=== PATIENT | female | born 1990 | race African-American/Black ===

== ENCOUNTER 2016-10-03 23:01 | Emergency (ER) | payer OTHER ==
[2014-09-13 23:01] VITALS: BP 117/56
[2016-10-04] MEDS ORDERED: CLIN-44 PO (10:34)
[2016-10-04] MEDS ORDERED: HYDR-971 PO (10:34)
== END 2016-10-04 00:40 | disposition left against medical advice (07) ==
LOC: ER 23:01
DX: K08.89 Other specified disorders of teeth and supporting structures (principal)

== ENCOUNTER 2016-10-04 09:16 | Emergency (ER) | payer OTHER ==
[~2016-10-04] VITALS: Ht 162.6 cm; Wt 72.6 kg
[2016-10-04 10:10] VITALS: BP 129/57
[2016-10-04] MEDS ORDERED: CLIN-44 PO (10:34)
[2016-10-04] MEDS ORDERED: HYDR-971 PO (10:34)
--- NOTE | 2016-10-04 10:34 | PHYS DOC ---
Past Medical History Past Medical History: No Pertinent History, Asthma, Hypertension Past Surgical History: Appendectomy, Tonsillectomy Alcohol Use: Occasionally Drug Use: None Adult General Chief Complaint Chief Complaint: DENTAL PROBLEM HPI HPI Patient is a 25 year old female who presents the emergency room today complaining of right lower dental pain secondary to her molar raking off approximately 3 days ago while she was eating. Patient denies any chronic or recurring dental problems. She denies any antibiotic use or recent dental work. Patient states that she will follow up with [facility] this next week for definitive dental care. Review of Systems Review of Systems Constitutional: Denies fever or chills [] Eyes: Denies change in visual acuity, redness, or eye pain [] HENT: Denies nasal congestion or sore throat [] Respiratory: Denies cough or shortness of breath [] Cardiovascular: No additional information not addressed in HPI [] GI: Denies abdominal pain, nausea, vomiting, bloody stools or diarrhea [] : Denies dysuria or hematuria [] Musculoskeletal: Denies back pain or joint pain [] Integument: Denies rash or skin lesions [] Neurologic: Denies headache, focal weakness or sensory changes [] Endocrine: Denies polyuria or polydipsia [] Allergies Allergies Allergies Coded Allergies Type Severity Reaction Last Updated Verified Penicillins Allergy Unknown 09/13/14 No chocolate flavor Allergy Unknown 09/13/14 No Physical Exam Physical Exam Constitutional: Well developed, well nourished, no acute distress, non-toxic appearance. [] HENT: Normocephalic, atraumatic, bilateral external ears normal, oropharynx moist, no oral exudates, nose normal. There is no trismus. Right second mandibular molar with dental defect into the pulp. There is approximately two third of the surface that is missing. The margins of the dental injury are smooth that appear more chronic in nature suspicious for underlying dental decay prior to the actual fracture of the tooth. There is no purulent drainage or adjacent gingival abscess/swelling. Eyes: PERRLA, EOMI, conjunctiva normal, no discharge. [] Neck: Normal range of motion, no tenderness, supple, no stridor. [] Cardiovascular:Heart rate regular rhythm, no murmur [] Lungs & Thorax: Bilateral breath sounds clear to auscultation [] Abdomen: Bowel sounds normal, soft, no tenderness, no masses, no pulsatile masses. [] Skin: Warm, dry, no erythema, no rash. [] Back: No tenderness, no CVA tenderness. [] Extremities: No tenderness, no cyanosis, no clubbing, ROM intact, no edema. [] Neurologic: Alert and oriented X 3, normal motor function, normal sensory function, no focal deficits noted. [] Psychologic: Affect normal, judgement normal, mood normal. [] Current Patient Data Vital Signs Vital Signs Date Time Temp Pulse Resp B/P Pulse Ox O2 Delivery O2 Flow Rate FiO2 10/04/16 10:10 98.4 73 16 98 Room Air 98.4 EKG EKG [] Radiology/Procedures Radiology/Procedures [] Course & Med Decision Making Course & Med Decision Making Pertinent Labs and Imaging studies reviewed. (See chart for details) [] Dragon Disclaimer Dragon Disclaimer This electronic medical record was generated, in whole or in part, using a voice recognition dictation system. Departure Departure Impression: Primary Impression: Dental caries Additional Impression: Pain Disposition: 01 HOME, SELF-CARE Condition: GOOD Referrals: NO PCP (PCP) Patient Instructions: Dental Caries-Brief, Dental Pain, [id number] Additional Instructions: 1. Take the medication as prescribed. 2. You can use dental wax to place into the defect of your tooth to help minimize the irritation to the nerve root from temperature changes. 3. Please review your discharge instructions; specifically reasons to return to the emergency room. 4. Be sure to call [facility] and follow-up to be seen within the next 7-10 days. 5. A pamphlet is provided for U for assistance in finding a primary care doctor to address your medical concerns and provide medication refills if you need them. Scripts Clindamycin Hcl 150 Mg Capsule2 Cap PO QID #56 CAP Prov:PARTHA SAMUEL 10/04/16 Hydrocodone/Apap 5-325 (Sidon 5-325 Tablet)1 Each Tablet1 Tab PO PRN Q6HRS PRN PAIN #15 TAB Prov:PARTHA SAMUEL 10/04/16 Problem Qualifiers PARTHA SAMUEL Oct 04, 2016 10:34
== END 2016-10-04 10:55 | disposition home or self-care (01) ==
LOC: ER 09:16
DX: K02.9 Dental caries, unspecified (principal); J45.909 Unspecified asthma, uncomplicated; I10 Essential (primary) hypertension; Z90.49 Acquired absence of other specified parts of digestive tract; Z88.0 Allergy status to penicillin; Z91.018 Allergy to other foods
CPT/HCPCS: 99283

== ENCOUNTER 2017-02-26 17:23 | Emergency (ER) | payer OTHER ==
[~2017-02-26] VITALS: Ht 160 cm; Wt 72.6 kg
[~2017-02-26 17:23] MED LIST: CLIN-44 PO; HYDR-971 PO
[2017-02-26 17:35] VITALS: BP 116/79
[2017-02-26] MEDS ORDERED: PROM25TA10 PO (17:43)
[2017-02-26] MEDS ORDERED: SUMA50TA3 PO (17:43)
--- NOTE | 2017-02-26 17:44 | PHYS DOC ---
Past Medical History Past Medical History: No Pertinent History, Asthma, Hypertension, Migraines Past Surgical History: Appendectomy, Tonsillectomy Alcohol Use: Occasionally Drug Use: None Adult General Chief Complaint Chief Complaint: HEADACHE HPI HPI Patient is a 26 year old female with history of hypertension and asthma who presents today with at 32/10 bilateral temporal migraine headache that began yesterday. Patient denies being the worst headache in her life despite rating it at 32/10. Patient denies any nausea or vomiting though she is complaining of photophobia. She states she has tried Tylenol 3 as well as BC powder with no relief. She states this pain was of gradual onset. She states she's had similar headaches before. Review of Systems Review of Systems Constitutional: Denies fever or chills [] Eyes: Denies change in visual acuity, redness, or eye pain [] HENT: Denies nasal congestion or sore throat [] Respiratory: Denies cough or shortness of breath [] Cardiovascular: No additional information not addressed in HPI [] GI: Denies abdominal pain, nausea, vomiting, bloody stools or diarrhea [] : Denies dysuria or hematuria [] Musculoskeletal: Denies back pain or joint pain [] Integument: Denies rash or skin lesions [] Neurologic: Migraine headache Endocrine: Denies polyuria or polydipsia [] Current Medications Current Medications Current Medications Medications (Trade) Dose Ordered Sig/Frank Start Time Stop Time Status Last Admin Dose Admin Diphenhydramine HCl (Benadryl) 25 mg 1X ONCE 02/26/17 17:45 02/26/17 17:46 Ketorolac Tromethamine (Toradol) 60 mg 1X ONCE 02/26/17 17:45 02/26/17 17:46 Prednisone (Prednisone) 60 mg 1X ONCE 02/26/17 17:45 02/26/17 17:46 Promethazine HCl (Phenergan) 25 mg 1X ONCE 02/26/17 17:45 02/26/17 17:46 Allergies Allergies Allergies Coded Allergies Type Severity Reaction Last Updated Verified Penicillins Allergy Unknown 09/13/14 No chocolate flavor Allergy Unknown 09/13/14 No Physical Exam Physical Exam Constitutional: Well developed, well nourished, no acute distress, non-toxic appearance. [] HENT: Normocephalic, atraumatic, bilateral external ears normal, oropharynx moist, no oral exudates, nose normal. [] Eyes: PERRLA, EOMI, conjunctiva normal, no discharge. [] Neck: Normal range of motion, no tenderness, supple, no stridor. [] Cardiovascular:Heart rate regular rhythm, no murmur [] Lungs & Thorax: Bilateral breath sounds clear to auscultation [] Abdomen: Bowel sounds normal, soft, no tenderness, no masses, no pulsatile masses. [] Skin: Warm, dry, no erythema, no rash. [] Back: No tenderness, no CVA tenderness. [] Extremities: No tenderness, no cyanosis, no clubbing, ROM intact, no edema. [] Neurologic: Alert and oriented X 3, normal motor function, normal sensory function, no focal deficits noted. Cranial nerves II through XII intact Psychologic: Affect normal, judgement normal, mood normal. [] Current Patient Data Vital Signs Vital Signs Date Time Temp Pulse Resp B/P (MAP) Pulse Ox O2 Delivery O2 Flow Rate FiO2 02/26/17 17:35 99.0 74 16 116/79 (91) 100 Room Air 99.0 EKG EKG [] Radiology/Procedures Radiology/Procedures [] Course & Med Decision Making Course & Med Decision Making Pertinent Labs and Imaging studies reviewed. (See chart for details) Patient is in the ED with complaints of a migraine headache. She has previous history of similar migraines. She was given Toradol 60 mg IM, promethazine by mouth, Benadryl by mouth, and prednisone and discharge. Discharged with Imitrex and instructed to follow-up with her PCP or neurologist provided next week if pain continues. Provided return precautions and discharged in stable condition. Her vitals are normal in the ED. Dragon Disclaimer Dragon Disclaimer This electronic medical record was generated, in whole or in part, using a voice recognition dictation system. Departure Departure Impression: Primary Impression: Migraine headache Disposition: HOME, SELF-CARE Condition: STABLE Referrals: NO PCP (PCP) Follow up in one week QIANA GUEVARA MD Patient Instructions: Migraine Headache, [id number] Additional Instructions: You were seen for a migraine headache. Take the prescribed medicines as needed for migraines. Follow-up with the provided neurologist next week if pain continues or your primary care doctor. Scripts Promethazine Hcl (PROMETHAZINE HCL) 25 Mg Tablet 1 TAB PO PRN Q6HRS, #20 TAB Prov: [email or web address] APRN 02/26/17 Sumatriptan Succinate (IMITREX) 50 Mg Tablet 1 TAB PO UD, #9 TAB 1 Refill Prov: NIKKI TRUONG APRN 02/26/17 Problem Qualifiers Primary Impression: Migraine headache Migraine type: without aura Status migrainosus presence: without status migrainosus Intractability: not intractable Qualified Codes: G43.009 - Migraine without aura, not intractable, without status migrainosus NIKKI TRUONG APRN Feb 26, 2017 17:44
[2017-02-26] MEDS ORDERED: KETOROLAC TROMETHAMINE 30 MG/ML INJ. IM ONE (17:45)
[2017-02-26] MEDS ORDERED: predniSONE 20 MG TABLET PO ONE (17:45)
[2017-02-26] MEDS ORDERED: PROMETHAZINE 12.5 MG TABLET. PO ONE (17:45)
[2017-02-26] MEDS ORDERED: diphenhydrAMINE HCL 25 MG CAPSULE PO ONE (17:45)
== END 2017-02-26 17:56 | disposition home or self-care (01) ==
LOC: ER 17:23
DX: G43.909 Migraine, unspecified, not intractable, without status migrainosus (principal); J45.909 Unspecified asthma, uncomplicated; I10 Essential (primary) hypertension; Z90.49 Acquired absence of other specified parts of digestive tract; Z88.0 Allergy status to penicillin; Z91.02 Food additives allergy status
CPT/HCPCS: 96372; 99284; J1885; J7512; Q0163; Q0169

== ENCOUNTER 2017-10-12 16:44 | Emergency (ER) | payer OTHER | END 2017-10-12 17:25 | disposition home or self-care (01) | LOC: ER 16:44 | DX: J06.9 Acute upper respiratory infection, unspecified (principal); I10 Essential (primary) hypertension; J45.909 Unspecified asthma, uncomplicated; G43.909 Migraine, unspecified, not intractable, without status migrainosus | CPT/HCPCS: 99283 ==